=== PATIENT | male | born 1960 | race Caucasian/White ===

== ENCOUNTER 2016-12-26 15:17 | Emergency (ER) | payer OTHER ==
[~2016-12-26] VITALS: Ht 188 cm; Wt 147.7 kg
[~2016-12-26 15:17] MED LIST: Ecotrin PO; NITROSTAT,NITR0.4 M1 SL; NOHOMEMEDS; Norvasc PO; Tylenol Extra Streng PO; Zestril,Prinivil PO
[2016-12-26 16:24] LABS: HEMATOCRIT 43.7 % (38.0-50.0); MCHC 35.5 G/DL (30.0-36.0); MCV 87.4 FL (86-99); MEAN PLAT.VOLUME 9.9 uM^3 (9.0-12.4); PLATELET COUNT 254 K/uL (156-360); RBC DIS.WIDTH-CV 12.5 % (11.8-14.6); RBC DIS.WIDTH-SD 39.2 % (39-53); WHITE BLOOD COUNT 5.2 K/uL (4.1-10.2)
[2016-12-26 16:30] LABS: CHLORIDE 104 mEq/L (99-109); POTASSIUM 4.3 mEq/L (3.7-5.4); SODIUM 137 mEq/L (136-147)
[2016-12-26 16:33] LABS: GLUCOSE 108 mg/dL (70-99)
[2016-12-26 16:34] LABS: ANION GAP 9 MEQ/L (2-14)
[2016-12-26 16:35] LABS: TOTAL BILIRUBIN 0.6 mg/dL (0.0-1.0)
[2016-12-26 16:36] LABS: ALKALINE PHOSPHATASE 56 IU/L (3-129); GFR ESTIMATE (CALCULATED) > 59 mL/min/
[2016-12-26 16:37] LABS: UREA NITROGEN (BUN) 19 mg/dL (9-23)
[2016-12-26 16:55] LABS: LIPASE 39 U/L (1.0-51.0)
[2016-12-26 17:49] LABS: ADD MIUA? NO; BILIRUBIN NEGATIVE; BLOOD NEGATIVE; COLOR YELLOW ((YELLOW)); GLUCOSE (STRIP) NEGATIVE; KETONES NEGATIVE; LEUKOCYTES NEGATIVE; NITRITE NEGATIVE; PROTEIN (STRIP) NEGATIVE; SPECIFIC GRAVITY 1.006 (1.000-1.030); UCUL ADDED? NO; UROBILINOGEN 0.2 MG/DL (0.2-1.0)
[2016-12-26] MEDS ORDERED: NORCO 5/3251 TABLET PO (18:52)
[2016-12-26] MEDS ORDERED: ATARAX,VISTARIL25 MG PO (18:52)
[2016-12-26] MEDS ORDERED: LISINOPRIL40 MG PO (19:00)
[2016-12-26] MEDS ORDERED: AMLODIPINE BESY10 MG PO (19:00)
[2016-12-26 19:10] VITALS: BP 126/93
== END 2016-12-26 19:11 | disposition home or self-care (01) ==
LOC: EME 15:17
DX: R10.31 Right lower quadrant pain (principal); R10.11 Right upper quadrant pain; E78.5 Hyperlipidemia, unspecified; I10 Essential (primary) hypertension; E03.9 Hypothyroidism, unspecified; Z87.891 Personal history of nicotine dependence
CPT/HCPCS: 74177; 80053; 81003; 83690; 85027; 99281; 99284; J7030

== ENCOUNTER → 2017-10-17 | Outpatient (CLI) | payer OTHER ==
[~2017-10-17] MED LIST changes: +AMLODIPINE BESY10 MG PO; +ATARAX,VISTARIL25 MG PO; +LISINOPRIL40 MG PO; +NORCO 5/3251 TABLET PO
== END | disposition home or self-care (01) ==
LOC: RAD 12:58
DX: M19.012 Primary osteoarthritis, left shoulder (principal)
CPT/HCPCS: 73030